=== PATIENT | female | born 2000 | race Caucasian/White ===

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

== ENCOUNTER 2022-09-10 09:41 | Emergency (ER) | payer SELFPAY ==
[~2022-09-10] VITALS: Ht 157 cm; Wt 63.0 kg
[~2022-09-10 09:41] MED LIST changes: -IBUP-1773 PO
[2022-09-10 09:45] VITALS: BP 123/97
--- NOTE | 2022-09-10 10:09 | ED General ---
General Chief Complaint: OB < 20 WEEKS Stated Complaint: 8 WEEKS PREG | VAGINAL BLEEDING Nursing Triage Note: ARRIVED VIA AMB TO ROOM 09 WITH COMPLAINTS OF VAGINAL BLEEDING STARTING AFTER INTERCOURSE LAST NIGHT. ABD CRAMPING OFF AND ON FOR A WEEK. APPX 8 WEEKS GEST. Source of Information: Patient Exam Limitations: No Limitations History of Present Illness Date Seen by Provider: September 10, 2022 Time Seen by Provider: 09:59 Initial Comments 21-year-old female presents to the emergency department today for vaginal bleeding. She is 8 weeks based on ultrasound done at [facility] at 5 weeks ago. Back pain started yesterday. She has had abdominal cramping off-and-on for about a week. Bleeding started after intercourse last night. Denies any vaginal discharge or bleeding. She went to Dr. DAMON's office today and they do an hCG level but did not do any other labs. She has an appointment on Friday for follow-up. All other systems reviewed and negative except documented per HPI. Voice recognition software was used to help create this chart Allergies and Home Medications Allergies Coded Allergies: No Known Drug Allergies (Unverified , 01/04/16) Patient Home Medication List Home Medication List Reviewed: Yes Benzocaine/Menthol (Dermoplast Pain Relieving [place]) 78 Gm Aerosol, 56 EA TP UD PRN for PAIN- SEE INSTRUCTIONS Prescribed by: DAVID DAMON on 11/30/201612 Dibucaine (Dibucaine) 30 Gm Oint, 0 GM TOP UD PRN for PAIN- SEE INSTRUCTIONS Prescribed by: DAVID DAMON on 11/30/20 161 Docusate Sodium (Dok) 100 Mg Capsule, 100 MG PO BID PRN for CONSTIPATION-1ST LINE Prescribed by: DAVID DAMON on 11/30/20 161 Ferrous Sulfate (Ferosul) 325 Mg Tablet, 325 MG PO DAILY Prescribed by: DAVID DAMON on 11/30/20 161 Hydrocodone Bit/Acetaminophen (HYDROcodone/APAP 5 MG/325 MG TAB) 1 Tab Tab, 1 EA PO Q4H PRN for PAIN-MODERATE (5-7) Prescribed by: DAVID DAMON on 11/30/20 161 Ibuprofen (Ibu) 600 Mg Tablet, 600 MG PO Q6HR Prescribed by: DAVID DAMON on 11/30/20 161 Review of Systems Review of Systems Constitutional: see HPI Past Kyyaocc-Vidnji-Kyupxd Hx Patient Social History Tobacco Use?: Yes Use of E-Cig and/or Vaping dev: Yes E-Cig or Vaping type used: Nicotine Substance use?: No Alcohol Use?: No Immunizations Up To Date Tetanus Booster (TDap): Unknown PED Vaccines UTD: Yes Seasonal Allergies Seasonal Allergies: Yes Past Medical History Surgeries: Yes Adenoidectomy, Tonsillectomy Respiratory: No Cardiac: Yes Irregular Heartbeat 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) Traumatic Brain Injury Last Menstrual Period: Jul 05, 2022 Reproductive Disorders: Yes Female Reproductive Disorders: Ovarian Cyst Sexually Transmitted Disease: No HIV/AIDS: No Genitourinary: No Gastrointestinal: No Musculoskeletal: No Endocrine: No HEENT: Yes Tonsilitis Loss of Vision: Denies Hearing Impairment: Denies Cancer: No Psychosocial: No Integumentary: Yes (history of MRSA) Blood Disorders: No Adverse Reaction/Blood Tranf: No Family Medical History Chronic constipation G8 SISTER FHx: COPD (chronic obstructive pulmonary disease) Grandmother FHx: anemia 19 MOTHER Other Conditions/Hx Physical Exam Vital Signs Vital Signs - First Documented 09/10/22 09:45 Temp 36.1 Pulse 81 Resp 16 B/P (MAP) 123/97 (106) Pulse Ox 100 O2 Delivery Room Air Capillary Refill : Less Than 3 Seconds Height, Weight, BMI Height: 5'2.00" Weight: 130lbs. 0oz. 58.023762fk; 25.00 BMI Method:Stated General Appearance: No Apparent Distress, WD/WN HEENT: Normal ENT Inspection, Pharynx Normal Neck: Normal Inspection, Supple Respiratory: Chest Non Tender, Lungs Clear, Normal Breath Sounds, No Accessory Muscle Use, No Respiratory Distress Cardiovascular: Regular Rate, Rhythm, No Murmur Gastrointestinal: Normal Bowel Sounds, No Organomegaly, No Pulsatile Mass, Non Tender, Soft Extremity: Normal Capillary Refill Neurologic/Psychiatric: Alert, Oriented x3, Normal Mood/Affect Skin: Normal Color, Warm/Dry Progress/Results/Core Measures Suspected Sepsis SIRS Temperature: Pulse: 81 Respiratory Rate: 16 Blood Pressure 123 /97 Mean: 106 Results/Orders My Orders Orders - ASADCASSI DO Rho(D) Immune Globulin (Rhophylac) (09/10/22 10:15) Vital Signs/I&O 09/10/22 09:45 Temp 36.1 Pulse 81 Resp 16 B/P (MAP) 123/97 (106) Pulse Ox 100 O2 Delivery Room Air Capillary Refill : Less Than 3 Seconds Blood Pressure Mean: 106 Departure Communication (Admissions) Patient is hemodynamically stable with a nonsurgical abdominal exam. Minimal bleeding. Will do bedside ultrasound performed by myself I see no obvious heartbeat ultrasound is not maximized for evaluation, especially this early. Advised I cannot definitively tell her if she was having a miscarriage or not. She is aware of negative blood type and she is given RhoGAM. She has an appoint with Dr. DAMON on Friday for further evaluation. They do a beta-hCG today so we will not repeat this. Impression Primary Impression: Vaginal bleeding during Disposition: HOME, SELF-CARE Condition: Stable Departure-Patient Inst. Referrals: DAVID DAMON DO (PCP/Family) Primary Care Physician Patient Instructions: Bleeding in Early ED Add. Discharge Instructions: As discussed on my limited ultrasound at bedside I do not see an obvious heartbeat however her ultrasound is not optimized for this exam, especially early on in . I recommend you follow-up with Dr. DAMON on Friday for further evaluation and treatment recommendations. Return to the emergency department for any severe abdominal pain, if you are going through more than 1 pad an hour or if your symptoms change in any way concerning to you. You were given RhoGAM here in the emergency department to help prevent blood incompatibility. All discharge instructions reviewed with patient and/or family. Voiced understanding. CASSI KAMARA DO September 10, 2022 10:09
[2022-09-10] MEDS ORDERED: RHO(D) IMMUNE GLOBULIN 300 MCG/2 ML SYRINGE IM/IV ONE (10:15)
[2022-09-12] MEDS ORDERED: IBUP-1773 PO (07:18)
[2022-09-12] MEDS ORDERED: ACHD5005 PO (07:18)
== END 2022-09-10 10:45 | disposition home or self-care (01) ==
LOC: EDUNIT# 09:41 → ER 09:44
DX: O20.9 Hemorrhage in early pregnancy, unspecified (principal); O99.331 Smoking (tobacco) complicating pregnancy, first trimester; F17.290 Nicotine dependence, other tobacco product, uncomplicated; Z3A.08 8 weeks gestation of pregnancy
CPT/HCPCS: 99284

== ENCOUNTER → 2022-09-10 | Outpatient (CLI) | payer SELFPAY ==
[~2022-09-10] MED LIST changes: -DCS100C PO; +DOCU-239 PO; +IBUP-1773 PO
== END ==
LOC: LABNPT 09:43
PROVIDERS: ATTEND Obstetrics & Gynecology
DX: O20.0 Threatened abortion (principal); Z3A.00 Weeks of gestation of pregnancy not specified
CPT/HCPCS: 84702

== ENCOUNTER 2022-09-11 10:22 | Outpatient (CLI) | payer SELFPAY ==
[~2022-09-11] VITALS: Ht 157.5 cm; Wt 64.1 kg
[2022-09-12] MEDS ORDERED: IBUP-1773 PO ×2 (07:18)
[2022-09-12] MEDS ORDERED: ACHD5005 PO ×2 (07:18)
== END 2022-09-11 13:52 | disposition home or self-care (01) ==
LOC: PREOP 10:22
PROVIDERS: ATTEND Obstetrics & Gynecology
DX: Z01.818 Encounter for other preprocedural examination (principal)

== ENCOUNTER 2022-09-12 06:14 | Day surgery (SDC) | payer SELFPAY ==
[~2022-09-12] VITALS: Ht 157 cm; Wt 64.1 kg
[2022-09-12] VITALS (8 sets, daily range): BP systolic 90–114; BP diastolic 53–81
[2022-09-12 06:49] LABS: BASOPHILS # (AUTO) 0.1 10^3/uL (0.0-0.1); BASOPHILS % (AUTO) 1 % (0-10); EOSINOPHILS # (AUTO) 0.4 10^3/uL (0.0-0.3); EOSINOPHILS % (AUTO) 4 % (0-10); HEMATOCRIT 38 % (35-52); HEMOGLOBIN 12.8 g/dL (11.5-16.0); LYMPHOCYTES # (AUTO) 2.7 10^3/uL (1.0-4.0); LYMPHOCYTES % (AUTO) 31 % (12-44); MEAN CORPUSCULAR HEMOGLOBIN 27 pg (25-34); MEAN CORPUSCULAR HGB CONC 34 g/dL (32-36); MEAN CORPUSCULAR VOLUME 81 fL (80-99); MEAN PLATELET VOLUME 12.3 fL (9.0-12.2); MONOCYTES # (AUTO) 0.7 10^3/uL (0.0-1.0); MONOCYTES % (AUTO) 8 % (0-12); NEUTROPHILS # (AUTO) 4.8 10^3/uL (1.8-7.8); NEUTROPHILS % (AUTO) 55 % (42-75); PLATELET COUNT 231 10^3/uL (130-400); WHITE BLOOD COUNT 8.7 10^3/uL (4.3-11.0)
[2022-09-12] MEDS ORDERED: fentaNYL INJ 100 MCG/2 ML AMP ONE (06:58)
[2022-09-12] MEDS ORDERED: proPOfol 200 MG/20 ML (DIPRIVAN) VIAL IV ONE (06:58)
[2022-09-12] MEDS ORDERED: LIDOCAINE PF 2% 5 ML (XYLOCAINE) VIAL ONE (06:58)
[2022-09-12] MEDS ORDERED: KETOROLAC 30 MG/ML VIAL ONE (06:58)
[2022-09-12] MEDS ORDERED: ONDANSETRON 4 MG/2 ML (SDV) Z0FRAN ONE (06:58)
[2022-09-12] MEDS ORDERED: MIDAZOLAM 2 MG/2 ML (VERSED) VIAL ONE (06:58)
[2022-09-12] MEDS: LACTATED RINGERS 1,000 ML IV PRN ×2 (07:12→07:50)
--- NOTE | 2022-09-12 07:14 | Progress Note-Pre Operative ---
Pre-Operative Progress Note Date of Available H&P: Sep 12, 2022 Date H&P Reviewed: Sep 12, 2022 Time H&P Reviewed: 07:10 History & Physical: H&P Reviewed, Patient Examed, No changes noted Pre-Operative Diagnosis: Missed Ab DAVID DAMON DO Sep 12, 2022 07:14
[2022-09-12] MEDS ORDERED: ONDANSETRON 4 MG/2 ML (SDV) Z0FRAN IVP PRN ×2 (07:15→08:00)
[2022-09-12] MEDS ORDERED: HYDROcodone/APAP 5 MG/325 MG (LORTAB) TAB PO PRN (07:15)
[2022-09-12] MEDS ORDERED: D5 LR IV SOLUTION 1,000 ML IV SCH (07:15)
[2022-09-12] MEDS ORDERED: KETOROLAC 30 MG/ML VIAL IVP ONE (07:15)
--- NOTE | 2022-09-12 07:17 | Discharge Inst-Women's Service ---
Discharge Inst-Women's Serv Depart Medication/Instructions New, Converted or Re-Newed RX: Transmitted to Pharmacy Problems Reviewed?: Yes Consults/Follow Up Additional Follow Up: Yes Activity Activity: Activity as Tolerated Driving Instructions: No Driving for 1 Week NO SMOKING: NO SMOKING Nothing Inside Vagina: No Douching, No [place], No Tampons Diet Discharge Diet: No Restrictions Symptoms to Report to : Bleeding Excessive, Pain Increased, Fever Over 101 Degrees F, Vaginal Bleeding Increase, Questions/Concerns For Any Problems or Questions: Contact Your Physician DAVID DAMON DO Sep 12, 2022 07:17
[2022-09-12] MEDS ORDERED: IBUP-1773 PO ×2 (07:18)
[2022-09-12] MEDS ORDERED: ACHD5005 PO ×2 (07:18)
[2022-09-12] MEDS ORDERED: SEVOFLURANE (ULTANE) 15 ML INHAL SOLN ONE (07:46)
[2022-09-12] MEDS ORDERED: MEPERIDINE (DEMEROL) INJ 50 MG/ML IVP ONE (08:00)
[2022-09-12] MEDS ORDERED: morphine INJ 10 MG/ML 1ML (SYR OR VIAL) IVP ONE (08:00)
[2022-09-12] MEDS ORDERED: HYDROmorphone 2 MG/ML VIAL (DILAUDID) IV ONE (08:00)
[2022-09-12] MEDS ORDERED: PROMETHAZINE INJ 25 MG/ML (PHENERGAN) AMP IVP ONE (08:00)
--- NOTE | 2022-09-12 09:25 | Anesthesia-General Post-Op ---
General Patient Condition Mental Status/LOC: Same as Preop Cardiovascular: Satisfactory Nausea/Vomiting: Absent Respiratory: Satisfactory Pain: Controlled Complications: Absent Post Op Complications Complications None Follow Up Care/Instructions Patient Instructions None needed. Anesthesia/Patient Condition Patient Condition Patient is doing well, no complaints, stable vital signs, no apparent adverse anesthesia problems. No complications reported per nursing. PELON AKINS CRNA Sep 12, 2022 09:25
--- NOTE | 2022-09-12 13:10 | OPERATIVE REPORT ---
DATE OF SERVICE: 09/12/2022 PREOPERATIVE DIAGNOSES: A 21-year-old female with missed . POSTOPERATIVE DIAGNOSIS: A 21-year-old female with missed . PROCEDURE: Suction D and C. SURGEON: David Damon DO ANESTHESIA: LMA general. ESTIMATED BLOOD LOSS: 300 mL URINE OUTPUT: 50 mL drained at the end of the procedure. FLUIDS: 800 mL lactated Ringer solution. FINDINGS: Moderate amount of products of conception. Grossly normal-appearing cervix, vagina and external female genitalia. SPECIMEN SENT: Products of conception. INDICATIONS FOR PROCEDURE: This 21-year-old female was a patient who had sought care in my office for care. She had a finding of missed AB with a falling hCG level and no cardiac activity noted on multiple ultrasounds that were done both at the hospital and [facility]. Due to missed AB, I discussed with the patient spontaneous miscarriage versus proceeding with suction D and C. She opted to proceed with suction D and C. Risks of procedure discussed with the patient in detail and after all of her questions were answered, she was agreeable to proceed. Consent was obtained. The patient was taken to the operating room. OPERATIVE REPORT IN DETAIL: Once in the operating room, anesthesia was administered and found to be adequate. She was placed in dorsal lithotomy position, prepped and draped in normal sterile fashion. A timeout was performed. A weighted speculum inserted to the patient's vagina. Right angle retractor was utilized. Cervix was grasped at 12 o'clock position using a long Allis clamp. I then gently sound the uterine cavity, depth was found to be 8 cm. I then gently dilated the cervix using Hanks dilators to maximum dilatation of 1 cm, at which point I introduced a #7 curved rigid suction curette into the uterus and applying Quinton suction to a maximum suction pressure of 75 mmHg. I performed a gentle curettage of the endometrial cavity, rotated the suction curette and clearing the endometrial cavity of all products of conception. This was done on several passes. I then performed a gentle sharp curettage followed by one final pass with the suction curettage after which there is minimal to no bleeding noted from the external cervical os. I then removed all instruments from the patient's vagina. The patient tolerated the procedure well and was taken to recovery area in stable condition. Lap and sponge counts were correct at the end of the procedure. Instrument counts correct as well. Job ID: [id number] DocumentID: [id number] Dictated Date: 09/12/2022 07:56:25 Waxing Machine Operator Helper Date: 09/12/2022 13:08:00 Dictated By: DAVID DAMON DO
== END 2022-09-12 09:30 | disposition home or self-care (01) ==
LOC: SDC 06:14
PROVIDERS: ATTEND Obstetrics & Gynecology
DX: O02.1 Missed abortion (principal); Z87.891 Personal history of nicotine dependence; Z28.310 Unvaccinated for COVID-19
CPT/HCPCS: 36415; 85025; 86850; 86900; 86901; 87081